=== PATIENT | female | born 1960 | race Caucasian/White ===

== ENCOUNTER → 2017-06-18 | Outpatient (CLI) | payer BC | END | disposition home or self-care (01) | LOC: CVU 07:25 | PROVIDERS: ATTEND Internal Medicine | DX: R20.2 Paresthesia of skin (principal); R23.4 Changes in skin texture | CPT/HCPCS: 93922 ==

== ENCOUNTER → 2019-01-27 | Outpatient (CLI) | payer BC | END | disposition home or self-care (01) | LOC: LAB 19:07 | PROVIDERS: ATTEND Physician Assistant Medical | DX: R07.81 Pleurodynia (principal); R07.9 Chest pain, unspecified | CPT/HCPCS: 36415; 85379 ==